=== PATIENT | female | born 1950 | race Two or more races ===

== ENCOUNTER 2016-09-18 11:56 | Day surgery (SDC) | payer OTHER ==
[~2016-09-18] VITALS: Ht 149.9 cm; Wt 57.6 kg
[2016-09-18 12:27] VITALS: Ht 149.9 cm; Wt 57.6 kg
[2016-09-18] MEDS ORDERED: PANT40TA4 PO (12:27)
[2016-09-18] MEDS ORDERED: ATOR40TA68 PO (12:27)
[2016-09-18] MEDS ORDERED: GUAI473L22 PO (12:27)
[2016-09-18] MEDS ORDERED: PROPOFOL 20 ML ONE (13:06)
[2016-09-18] MEDS ORDERED: FENTAnyl 50 MCG/ML VIAL ONE (13:07)
[2016-09-18] MEDS ORDERED: MIDAZOLAM 1 MG/ML 2 ML INJ ONE (13:07)
[2016-09-18 13:13] VITALS: BP 136/73; PULSE 68; RESP 19
[2016-09-18 14:25] VITALS: BP 146/71; PULSE 64; RESP 19
[2016-09-18 15:14] VITALS: BP 142/63; PULSE 60; RESP 18
--- NOTE | 2016-09-18 18:08 | GILP ---
DATE OF PROCEDURE: 09/18/2016 NAME OF PROCEDURE: Colonoscopy. INDICATIONS: Followup of colon polyps. FINDINGS: After informed consent, the patient was placed in lateral position, sedated per anesthesi a. The Olympus video colonoscope was easily passed in patient's rectum. The sigmoid, descending, t ransverse, ascending colon to the cecum. The appendiceal orifice and ileocecal valve were identifie d. These appeared normal. The ileocecal valve was traversed. Normal ileum was encountered. The i nstrument was slowly removed through the cecum, ascending, and transverse colon. The mucosa through out appeared normal. There were scattered diverticula throughout the colon. In the descending colo n, there was a 3 mm polypoid lesion seen and removed in toto with jumbo biopsy forceps. The instrum ent was removed from anus. In the sigmoid colon were a number of diverticula were noted. In the si gmoid colon at 15 cm, a thickening of a fold was noted. This was biopsied. In the rectum, turn hoda und procedure revealed internal hemorrhoids. The instrument was removed from the patient's rectum. The patient tolerated procedure well. COMPLICATIONS: None. IMPRESSION: 1. Descending colon polyp removed by cold biopsy technique as above. 2. Thickened fold at 15 cm, biopsied. 3. Diverticulosis. 4. Internal hemorrhoids. PLAN: 1. Postoperative recommendations. 2. Follow up pending pathology. Dictated By: FABIEN VILLA/JACQUE Conf#: [id number] DID#: [id number] CC: JESS RAMIREZ MD; FABIEN GILLIAM MD;*[facility] [place]*
--- NOTE | 2016-09-18 18:17 | GILP ---
DATE OF PROCEDURE: 09/18/2016 UPPER GASTROINTESTINAL ENDOSCOPY INDICATIONS: Follow up Herrmann's esophagus. FINDINGS: After informed consent, the patient was placed in lateral position, and sedated per anest hesia. The Olympus video endoscope was easily passed into patient's esophagus. The instrument was advanced to the distal esophagus where a hiatal hernia and a short-segment Herrmann's less than 1 cm were noted. The instrument was advanced into the stomach. The pylorus was seen. The duodenal bulb and second portion examined and appeared normal. The instrument was removed from the patient's sto mach, carefully examined including turnaround procedure. The instrument was removed through a hiatal hernia which was small. Multiple biopsies of the Herrmann's esophagus were performed. There was no untoward bleeding from sites. The instrument was removed from the proximal esophagus, which was normal. The instrument was removed from the patient's mouth. The patient tolerated procedure well. COMPLICATIONS: None. IMPRESSION: 1. Hiatal hernia. 2. Herrmann's esophagus, biopsied. PLAN: 1. Postoperative patient. 2. Followup pending pathology. Dictated By: FABIEN VILLA/JACQUE Conf#: [id number] DID#: [id number]
== END 2016-09-18 14:23 | disposition home or self-care (01) ==
LOC: GIL 11:56
PROVIDERS: ATTEND Internal Medicine Gastroenterology
DX: D12.4 Benign neoplasm of descending colon (principal); K63.5 Polyp of colon; K44.9 Diaphragmatic hernia without obstruction or gangrene; K22.70 Barrett's esophagus without dysplasia; K57.90 Diverticulosis of intestine, part unspecified, without perforation or abscess without bleeding; K64.8 Other hemorrhoids; I10 Essential (primary) hypertension
CPT/HCPCS: 43239; 45380; J2250; J3010